=== PATIENT | male | born 1950 | race Two or more races ===

== ENCOUNTER 2020-06-02 10:57 | Emergency (ER) | payer MEDICARE, OTHER ==
[~2020-06-02] VITALS: Ht 195.6 cm; Wt 86.4 kg
[2020-06-02 11:10] VITALS: BP 142/91
== END 2020-06-02 13:57 | disposition home or self-care (01) ==
LOC: EMS 10:57
DX: Z20.828 Contact with and (suspected) exposure to other viral communicable diseases (principal)
CPT/HCPCS: 99283; U0003